=== PATIENT | female | born 1945 | race Caucasian/White ===

== ENCOUNTER → 2016-05-10 | Outpatient (CLI) | payer MEDICARE, OTHER ==
[~2016-05-10] MED LIST: ASPI-730 PO; BENZ100C97 PO; DOCU-129 PO; ESTR0.5T PO; MINO100C2 PO; MULT-795 PO
--- NOTE | 2016-05-10 10:39 | DI ---
Indication: ITS.REASON: M54.2 NECK PAIN PROCEDURE: CERVICAL SPINE 4 OR 5 VIEWS: Encounter: Initial Comparison: None Findings: Alignment of the cervical spine is within normal limits. No acute fracture or subluxation. Cervicothoracic junction is intact. The disk spaces are normal. Mild degenerative facet change at C6-C7 and C7-T1. There is also left-sided degenerative facet disease at C4-C5. The oblique views show bony neural foraminal stenosis at C4-C5 and C5-C6 on the left. Odontoid view is suboptimal. Impression: Degenerative disk and facet disease of the cervical spine. .
== END ==
LOC: IMA 09:51
PROVIDERS: ATTEND Family Medicine
DX: M47.812 Spondylosis without myelopathy or radiculopathy, cervical region (principal); E28.39 Other primary ovarian failure; M47.813 Spondylosis without myelopathy or radiculopathy, cervicothoracic region; M85.89 Other specified disorders of bone density and structure, multiple sites; M50.321 Other cervical disc degeneration at C4-C5 level; M50.322 Other cervical disc degeneration at C5-C6 level; Z78.0 Asymptomatic menopausal state

== ENCOUNTER 2017-03-20 15:07 | Observation (INO) ==
[2017-03-20] MEDS ORDERED: DiltiaZEM 25 MG/5 ML INJECTION IVP ONE (15:21)
[2017-03-20] MEDS ORDERED: NS 1,000 ML IV ONE (15:21)
[2017-03-20] MEDS: SALINE FLUSH 10ml SYRINGE IVF PRN (15:27)
[2017-03-20] MEDS: NS 1,000 ML IV SCH ×3 (16:12→23:41)
--- NOTE | 2017-03-20 16:29 | Emergency Department Report ---
Cardiac General HPI - General Chief Complaint: Arrhythmia/Palpitations Stated Complaint: Heart palpitations, chest pain, sob Time Seen by Provider: 03/20/17 15:20 - History of Present Illness HPI narrative: 71-year-old female presents with shortness of breath and anxiety feeling. Patient has no previous past medical history and no past cardiac issues. See clinical research associate this last week and had an ejection fraction was 70%. She is normally very active and very healthy. Is a retired nurse. No tobacco use. She is not having any chest pain or chest tightness. No heaviness in the chest. - Related Data Home Medications Medication Instructions Recorded Confirmed Estrace (estradiol) 0.5 mg tablet 0.5 mg PO HS 30 Days tab 08/02/16 03/20/17 Docusate Sodium [Stool Softener] 200 mg PO HS 03/15/17 03/20/17 Nitroglycerin 0.4 mg SL Q5M PRN 03/15/17 03/20/17 Vit A/Vit C/Vit E/Zinc/Copper 1 each PO BID 03/15/17 03/20/17 [Preservision Areds Tablet] Previous Rx's Medication Instructions Recorded Apixaban [Eliquis] 5 mg PO BID #60 tab 03/21/17 Flecainide [Tambocor] 50 mg PO BID #60 tab 03/21/17 cephALEXin [Cephalexin] 1 cap PO TID #15 cap 03/21/17 Allergies Allergy/AdvReac Type Severity Reaction Status Date / Time Sulfa (Sulfonamide Allergy Mild ITCH Verified 03/20/17 16:31 Antibiotics) minocycline Allergy Nausea Verified 03/20/17 16:31 propoxyphene AdvReac Mild NAUSEA/VOMI Verified 03/20/17 16:31 TING Review of Systems All systems: reviewed and negative except as stated PFSH Patient Stated Medical History Macular Degeneration Yes: receives injections with help Other Cardiology Yes: during stress test had pac's, pvc's Pneumonia Yes Other Musculoskeletal Yes: partial tear right rotator cuff, spinal stenosis l4-5, s1 Clinic Medical History (Last Reviewed 08/24/16 @ 21:32 by Christie Crouch MD) Osteopenia (Acute Medical) Colon polyp (Acute Medical) Macular degeneration (Acute Medical) Cataract (Acute Medical) Surgical History: T & A - age 4. Bilateral Tubal Ligation - 1975. Breast Biopsies - 1984, 1990, 1994, 1995. Bilateral Breast Reduction - 1989. Lap Cholecystectomy - 1996. Vaginal Hysterectomy - 11/1998. Cystoscopy - 1998. Total Colonoscopy w/ polypectomy - 05/18/2002. Total Colonoscopy - 07/14/2004. Total Colonoscopy w/ biopsies - 03/19/2008 Family History: Family History (Last Reviewed 08/24/16 @ 21:32 by Christie Crouch MD) Other Adopted - Social History Smoking status: Current some day smoker Physical Exam - Limitations Limitations: no limitations - General General appearance: alert - Normal Exams: Head:: Normocephalic without trauma Chest/Respirations:: Clear all sanchez, with good airflow, and symmetry bilaterally Cardiovascular:: without murmur or gallop, Pulses 2+ all extremities, capillary refill, <2 seconds all extremities Abdomen:: Bowel sounds positive, soft, non-tender, non-distended, no hepatosplenomegaly, masses or bruits noted Neurological:: Patient is alert, and oriented, cranial nerves, motor/sensory/ cerebellar, exams w/o gross deficits, to observation Psychiatric:: Patient exhibits, appropriate attention, emotion and affect - Cardiovascular Cardiovascular exam: Present: tachycardia, irregular rhythm Course Vital Signs Temperature 98.3 F 03/20/17 15:18 Pulse Rate 158 H 03/20/17 15:18 Temperature 98.6 F 03/21/17 16:00 Pulse Rate 101 H 03/21/17 16:00 Respiratory Rate 20 03/21/17 16:00 Blood Pressure 105/58 03/21/17 16:00 Pulse Oximetry 96 03/21/17 16:00 Cardiac General - [facility] Narrative Medical decision making narrative: IV peripheral, [id number]. EKG,cbc,cmp,trop,ua ordered. EKG shows Afib, which appears to be newonset. Trop neg. wbc slightly elevated. Cardizem 20mg IV. initially little result, but approx 15 min after dose, pt converted to Sinus Rhythm but blood pressure also decreased to less than 90 systolic. She had no symptoms with the hypotension and Trendelenburg ordered with 1 liter ns bolus. BP improved to 120 systolic and pt had no symptoms. Cardiology to admit for obs. - Differential Diagnosis Differential diagnosis: Likely: palpitations, anxiety, sinus tachycardia, artial fibrillation, artial flutter, ventricular premature beats, supraventricular tachycardia - Medical Records Attestation: I reviewed the patient's medical records. - Lab Data Attestation: I reviewed the patient's lab results. Result diagrams: 03/21/17 04:16 03/21/17 04:16 Lab Results 03/20/17 03/20/17 Range/Units 15:21 15:21 WBC 16.0 H (4.5-11.0) T/MM3 RBC 3.91 L (4.00-5.20) M/MM3 Hgb 12.4 (12-16) GM/DL Hct 37.3 (36-46) % MCV 95.4 (80-100) UM3 MCH 31.7 (26-34) UUG MCHC 33.2 (31-37) GM/DL RDW Std Deviation 42.2 (36.9-50.2) FL Plt Count 171 (130-400) T/MM3 MPV 9.2 L (9.4-12.4) UM3 Immature Gran % (Auto) Not performed Neut % (Auto) Not performed Lymph % (Auto) Not performed [place] % (Auto) Not performed Eos % (Auto) Not performed Baso % (Auto) Not performed Neut # (Auto) Not performed Lymph # (Auto) Not performed [place] # (Auto) Not performed Eos # (Auto) Not performed Baso # (Auto) Not performed Abs Immat Gran (auto) Not performed Neutrophils % (Manual) 73.0 H (33-66) % Band Neutrophils % 22.0 H (0-6) % Lymphocytes % (Manual) 2.0 L (23-45) % Monocytes % (Manual) 3.0 (0-9.0) % Neutrophils # (Manual) 11.7 H (1.8-7.7) T/MM3 Band Neutrophils # 3.5 T/MM3 Lymphocytes # (Manual) 0.3 L (1-4.8) T/MM3 Monocytes # (Manual) 0.5 (0-0.8) T/MM3 RBC Morph Comment Normal Turbidity < 20 (0-20) Sodium 135 (134-144) MEQ/L Potassium 3.1 L (3.6-5) MEQ/L Chloride 98 (98-107) MEQ/L Carbon Dioxide 26 (22-30) MEQ/L Anion Gap 11 (5-15) MEQ/L BUN 12.0 (7-17) MG/DL Creatinine 0.8 (0.7-1.2) MG/DL GFR Calculation 71 BUN/Creatinine Ratio 15 (6-26) RATIO Glucose 147 H (65-110) MG/DL Calculated Osmolality 263 (261-280) MOSM/KG Calcium 8.6 (8.4-10.2) MG/DL Total Bilirubin 0.30 (0.20-1.30) MG/DL Icterus Index < 2 (0-7) AST 38 H (14-36) U/L ALT 52 (9-52) U/L Alkaline Phosphatase 73 (38-126) U/L Troponin I < 0.012 (0-0.12) ng/ml Total Protein 6.6 (6.3-8.2) G/DL Albumin 3.5 (3.5-5.0) G/DL Globulin 3.1 (2.4-3.6) G/DL Albumin/Globulin Ratio 1.1 (1.1-2.2) RATIO TSH 2.06 (0.47-4.68) MIU/L Specimen Hemolysis < 15 (0-25) - Radiology Data Attestation: I reviewed the patient's radiology results. Disposition Clinical Impression: atrial fibrillation new onset Disposition: 02 To [facility] [place] Acute Care Condition: Improved Time of Disposition: 14:48 - Seen By: physician
--- NOTE | 2017-03-20 16:31 | XRay Report ---
INDICATION: afib PROCEDURE: CHEST 2-VIEWS UPRIGHT (PA & LAT) Encounter: Initial COMPARISON: None FINDINGS: The lungs are clear without evidence of focal abnormal airspace opacity. There is no pleural effusion or pneumothorax. The heart size, mediastinal contours and pulmonary vascularity are within normal limits. IMPRESSION: No acute cardiopulmonary disease. .
--- NOTE | 2017-03-20 17:39 | Cardiology History & Physical ---
History of Present Illness Chief complaint: palpitations, SOA HPI: Mary Ann is a 71 year old female who is known to Dr. Figueroa with a history of precordial pain, palpitations, HLD and Right bruit who presented to the ED today with shortness of breath and anxiety feeling. She was seen in the clinic yesterday and received results of her recent stress test, echo and ELISHA monitor. She reported chest pain and was started on Imdur 30mg daily but pain was felt to be not likely cardiac etiology. Stress test showed EF 73% and no significant ischemia, recent echo was stable with EF 55%, NWMA, trace TR/MR, PAP 20mmHg, trace PI. ELISHA showed SR, occasional PACs and PVCs, short atrial runs (7 beats) No A Fib, no VT, no pauses, no symptoms on diary. She is normally very active and very healthy. Is a retired nurse. She is examined in the ED and reports some SOA with ambulation to the bathroom. She denies any chest pain or chest tightness. She has had a recent viral illness which has made her feel weak and fatigued Review of Systems - Constitutional Constitutional: Present: as per HPI, fatigue, weakness - EENMT Eyes: Absent: change in vision Balance: Absent: vertigo Mouth/Throat: Absent: sore throat - Cardiovascular Cardiovascular: Present: palpitations, dyspnea on exertion. Absent: chest pain , syncope, orthopnea Vascular: Absent: pedal edema - Respiratory Respiratory: Present: cough, dyspnea on exertion - Gastrointestinal Gastrointestinal: Absent: abdominal pain, diarrhea, nausea, vomiting - Genitourinary Genitourinary: Absent: dysuria - Integumentary/Breasts Integumentary: Absent: rash - Neurological Neurological: Absent: dizziness - Endocrine Endocrine: Present: palpitations [facility] Clinic Medical History (Last Reviewed 08/24/16 @ 21:32 by Christie Crouch MD) Osteopenia (Acute Medical) Colon polyp (Acute Medical) Macular degeneration (Acute Medical) Cataract (Acute Medical) Surgical History: T & A - age 4. Bilateral Tubal Ligation - 1975. Breast Biopsies - 1984, 1990, 1994, 1995. Bilateral Breast Reduction - 1989. Lap Cholecystectomy - 1996. Vaginal Hysterectomy - 11/1998. Cystoscopy - 1998. Total Colonoscopy w/ polypectomy - 05/18/2002. Total Colonoscopy - 07/14/2004. Total Colonoscopy w/ biopsies - 03/19/2008 Family History: Family History (Last Reviewed 08/24/16 @ 21:32 by Christie Crouch MD) Other Adopted - Social History Smoking status: Former smoker Alcohol intake frequency: holidays/special occasions only Household members: spouse Current occupational status: retired Current residence: Apartment/Private Home Medications Home Medications Medication Instructions Recorded Confirmed Type Estrace (estradiol) 0.5 mg tablet 0.5 mg PO HS 30 Days tab 08/02/16 03/20/17 History Docusate Sodium [Stool Softener] 200 mg PO HS 03/15/17 03/20/17 History Nitroglycerin 0.4 mg SL Q5M PRN 03/15/17 03/20/17 History Vit A/Vit C/Vit E/Zinc/Copper 1 each PO BID 03/15/17 03/20/17 History [Preservision Areds Tablet] Allergies Allergy/AdvReac Type Severity Reaction Status Date / Time Sulfa (Sulfonamide Allergy Mild ITCH Verified 03/20/17 16:31 Antibiotics) minocycline Allergy Nausea Verified 03/20/17 16:31 propoxyphene AdvReac Mild NAUSEA/VOMI Verified 03/20/17 16:31 TING Exam Vital signs: Temperature 98.3 F 03/20/17 15:18 Pulse Rate 99 03/20/17 17:01 Respiratory Rate 41 H 03/20/17 17:01 Blood Pressure 96/53 03/20/17 17:01 Pulse Oximetry 96 03/20/17 17:01 - Constitutional no acute distress, well nourished, cooperative - Routine HEENT Exam Head: Present: normocephalic ENT: Present: mucous membranes moist - Routine Neck Exam Present: carotid bruit (right). Absent: JVD - Routine Chest/Breast/Axilla Exam Chest wall: Absent: tenderness - Routine Respiratory Exam Present: rales (bibasilar). Absent: CTA bilaterally - Routine Cardiovascular Exam Present: RRR, no murmur, tachycardia - Routine Abdominal Exam Present: soft, normoactive bowel sounds - Routine Extremities Exam Present: no edema - Routine Skin Exam Present: intact, dry, warm - Routine Neurological Exam Present: alert, oriented X3 - Routine Psychiatric Exam Present: normal affect, normal thought process Results 03/21/17 04:16 03/21/17 04:16 - Imaging and Cardiology Imaging & Cardiology Narrative: Date of Exam: 03/20/17 Ordering Provider: Joseph Henderson MD Type of Exam(s): XR chest 2V Reason for Exam(s): afib INDICATION: afib PROCEDURE: CHEST 2-VIEWS UPRIGHT (PA & LAT) Encounter: Initial COMPARISON: None FINDINGS: The lungs are clear without evidence of focal abnormal airspace opacity. There is no pleural effusion or pneumothorax. The heart size, mediastinal contours and pulmonary vascularity are within normal limits. IMPRESSION: No acute cardiopulmonary disease. 03/20/17 17:40 EKG interpretations - EKG EKG shows: atrial fibrillation (with RVR) Hospital Course This is a general summary of the patient's hospital course. For more details refer to the complete medical record. Time spent with patient: 25 - 35 minutes Resuscitation Status: Full Code Assessment and Plan - Attestation Attestation Narrative: 03/22/17 13:20 Recommendation After examining the patient I agree with the above assessment. I am involved in the formulation of the patient's plan of care. - Assessment and Plan (1) Atrial fibrillation with RVR Status: Acute New onset - Converted in ED with Cardizem IV - Admit to medical for antiarrhythmic therapy - Start Flecainide 100mg now then 50mg BID - Check Mag level now and in am - Ekg to confirm SR now and in Am to check QT interval - Eliquis 5mg BID for anticoagulation to prevent stroke - Resume home medications including new RX for Imdur 30mg for chest pain. (2) Mixed hyperlipidemia Status: Chronic (3) Right carotid bruit Status: Chronic - Assessment and Plan New onset - Converted in ED with Cardizem IV - Admit to medical for antiarrhythmic therapy - Start Flecainide 100mg now then 50mg BID - Check Mag level now and in am - Ekg to confirm SR now and in Am to check QT interval - Eliquis 5mg BID for anticoagulation to prevent stroke - Resume home medications including new RX for Imdur 30mg for chest pain.
[2017-03-20 17:59] VITALS: BMI 22.4
[2017-03-20] MEDS ORDERED: NITROGLYCERIN 0.4 MG SUBLINGUAL TABLET SL PRN (18:13)
[2017-03-20] MEDS ORDERED: FLECAINIDE 100 MG TABLET PO ONE (19:00)
[2017-03-20] MEDS: APIXABAN 5 MG TABLET PO SCH (20:38)
[2017-03-20] MEDS: MULTI-VITAMIN + MINERAL TABLET PO SCH (20:39)
[2017-03-20] MEDS ORDERED: ONDANSETRON 4 MG/2 ML INJECTION IVP PRN (20:49)
[2017-03-20] MEDS ORDERED: ONDANSETRON ODT 4 MG TABLET PO PRN (20:50)
[2017-03-20] MEDS ORDERED: ONDANSETRON 4 MG/2 ML INJECTION IVP ONE (21:00)
[2017-03-20] MEDS ORDERED: ESTRADIOL 0.5 MG TABLET PO SCH (21:00)
[2017-03-20] MEDS ORDERED: ASPIRIN 325 MG TABLET PO SCH (21:00)
[2017-03-20] MEDS ORDERED: DOCUSATE SODIUM 100 MG CAPSULE PO SCH (21:00)
[2017-03-20] MEDS: IBUPROFEN 400 MG TABLET PO PRN (21:20)
[2017-03-21] MEDS: ACETAMINOPHEN 325 MG TABLET PO PRN ×3 (03:00→18:26)
[2017-03-21] MEDS: SALINE FLUSH 10ml SYRINGE IVF PRN (03:11)
[2017-03-21] MEDS: NS 1,000 ML IV SCH ×2 (03:53→04:38)
[2017-03-21] MEDS ORDERED: FUROSEMIDE 20 MG/2 ML INJECTION IVP ONE (05:05)
[2017-03-21] MEDS ORDERED: ISOSORBIDE MONONITRATE ER 30 MG TABLET PO SCH (06:30)
[2017-03-21] MEDS: IBUPROFEN 400 MG TABLET PO PRN ×2 (08:29→16:04)
[2017-03-21] MEDS ORDERED: FLECAINIDE 50 MG TABLET PO SCH (09:00)
[2017-03-21] MEDS: MULTI-VITAMIN + MINERAL TABLET PO SCH (09:16)
[2017-03-21] MEDS: APIXABAN 5 MG TABLET PO SCH (09:16)
--- NOTE | 2017-03-21 11:56 | Consult Note ---
Consult Information - Data of Consult Consult date: 03/21/17 Requesting Physician: Hang Figueroa MD Primary Care Provider: Kelli Lang MD Family Provider: Kelli Lang MD - Consult Narrative Reason for consult: shortness of breath History of present illness: Mary Ann is seen today in consultation for URI and shortness of breath. Mary Ann originally started feeling bad last 03/14 with fevers, chills, nausea, vomiting, and significant body aches. Maximiliano was seen in the emergency room overnight on 03/15/17 and had a fever up to 103. Basic labs were obtained. At that time it was felt that patient probably had influenza and was recommended to continue on Zofran as needed and Advil. Patient was discharged home, however her symptoms were persistent over the next several days until yesterday at which time she was having such severe shaking and chills. She presented back to the emergency room yesterday afternoon. At that time she did complain of feeling short of breath and anxious. She was found to be in atrial fibrillation with rapid ventricular rate at 153. She had been having some irregular heartbeats and had been evaluated in the outpatient setting by Dr. Figueroa several weeks prior. She was to start taking isosorbide 30 milligrams and had just filled it on 03/19/17, however, because of her acute significant illness, she had not yet started. Given the acute finding of atrial fibulation with rapid ventricular rate. Dr. Figueroa was contacted and he admitted patient for further evaluation and treatment. She did convert to sinus rhythm, however overnight patient continued to have some shortness of breath and Hospitalists services were contacted for medical evaluation. Mary Ann is seen this morning for initial consultation, she is alert, oriented and pleasant. She is breathing on room air without evidence of distress. Her biggest complaint is feeling short of breath, and having productive cough. She denies having chest pain, palpitations or dizziness. She feels overall fatigued and worn out, which has been present for the past 7 days. Past Medical History Patient Stated Medical History Atrial fibrillation Osteopenia Hyperlipidemia Cataracts Macular degeneration Constipation Surgical History: T & A - age 4. Bilateral Tubal Ligation - 1975. Breast Biopsies - 1984, 1990, 1994, 1995. Bilateral Breast Reduction - 1989. Lap Cholecystectomy - 1996. Vaginal Hysterectomy - 11/1998. Cystoscopy - 1998. Total Colonoscopy w/ polypectomy - 05/18/2002. Total Colonoscopy - 07/14/2004. Total Colonoscopy w/ biopsies - 03/19/2008 Family History Updates: Adopted - Social History Smoking status: Former smoker Substance use type: does not use Alcohol intake: current Alcohol intake frequency: holidays/special occasions only Housing: house Current occupational status: retired (registered nurse) Current residence: Residential Social history: Primary care provider-Dr. Lang Customer Care Agent-Dr. Figueroa Review of Systems All systems PM: 10-point ROS was reviewed, no additional remarkable complaints except - Constitutional Constitutional: Present: chills, fatigue, fever(s), malaise - Respiratory Respiratory: Present: cough Medications Home Medications Medication Instructions Recorded Confirmed Type Estrace (estradiol) 0.5 mg tablet 0.5 mg PO HS 30 Days tab 08/02/16 03/20/17 History Docusate Sodium [Stool Softener] 200 mg PO HS 03/15/17 03/20/17 History Nitroglycerin 0.4 mg SL Q5M PRN 03/15/17 03/20/17 History Vit A/Vit C/Vit E/Zinc/Copper 1 each PO BID 03/15/17 03/20/17 History [Preservision Areds Tablet] Allergies Allergy/AdvReac Type Severity Reaction Status Date / Time Sulfa (Sulfonamide Allergy Mild ITCH Verified 03/20/17 16:31 Antibiotics) minocycline Allergy Nausea Verified 03/20/17 16:31 propoxyphene AdvReac Mild NAUSEA/VOMI Verified 03/20/17 16:31 TING Exam Vital Signs: Temperature 99.9 F 03/21/17 08:00 Pulse Rate 98 03/21/17 08:14 Respiratory Rate 18 03/21/17 08:00 Blood Pressure 110/45 03/21/17 08:00 Pulse Oximetry 91 03/21/17 08:14 Telemetry Rhythm: Sinus Rhythm Height/Weight/BMI: Height 1.65 m Weight 62.1 kg Body Mass Index 22.4 - Constitutional Present: no acute distress, well nourished, well developed - Routine HEENT Exam Eye: Present: EOMI ENT: Present: mucous membranes moist, dentition normal - Routine Respiratory Exam Present: CTA bilaterally. Absent: wheezes - Routine Cardiovascular Exam Present: RRR. Absent: murmur - Routine Abdominal Exam Present: soft, normoactive bowel sounds, non distended. Absent: tenderness - Routine Extremities Exam Present: no edema, full ROM - Routine Back/Spine/Pelvis Exam Back/Spine: Present: full ROM - Routine Skin Exam Present: intact, dry, warm - Routine Neurological Exam Present: alert, oriented X3, CN II-XII intact, moving all extremities - Routine Psychiatric Exam Present: normal affect, cooperative Results - Labs CBC & Chem 7: 03/21/17 04:16 03/21/17 04:16 Assessment and Plan Assessment and Plan: Impression Viral illness-likely influenza Hypokalemia Leukocytosis with left shift A-fib with RVR-resolved Cataracts Macular degeneration Hyperlipidemia Anemia, normocytic Plan Cardiology care as per Dr Figueroa Suspect patient did have influenza based on history and clinical presentation. She is out of the window for treatment with Tamiflu and she agrees it will likely not affect illness process Given that she is having a productive cough, will obtain sputum culture Mucinex BID to help with sputum production Given one time dose of PO potassium given mild hypokalemia Otherwise treat symptoms. She is not hypoxic and is without any chest pain. Will recommend follow up with Dr Lang in 1 week post discharge. Resuscitation Status: Full Code - Physician Narrative Physician: Marie Darby MD Narrative: Date: 03/21/17 Time: 1744 I have independently evaluated and examined this patient. I reviewed the chart, the patient's history, and the CASINO WORKER/PA's documented findings as above. We discussed and formulated the assessment and plan as above with additions as below: Mrs. Esteves was hospitalized after developing chest pain with accompanying dyspnea and tightness in her chest. She was found to be in atrial fibrillation with rapid ventricular response as described above. She converted to sinus tachycardia followed by transient drop in blood pressure into the 70s requiring fluid administration. This afternoon she feels well indicating complete resolution of chest discomfort, dyspnea, and lightheadedness. She has minimal residual cough from what is believed to be an influenza last week and myalgias are improving. However her white count on admission yesterday was 16,000 with 22 % bands; this morning white count was 14.6 without a differential obtained although I subsequently requested it and she has 13% bands. Urinalysis was subsequently obtained demonstrating 20-30 WBCs, 10-20 epithelial cells, +2 bacteria, +2 leukocyte esterase, positive nitrites, +3 occult blood. The patient has no urinary symptoms. Temperature yesterday evening reached 101.6 and subsequently has normalized. Patient denies feeling ill at this time other than mild generalized headache. NAD, alert Oropharynx is clear, sinuses are nontender although there is mild mastoid tenderness bilaterally Respirations are nonlabored, good airflow, breath sounds are clear Abdomen soft, nontender, bowel sounds present; no costovertebral angle tenderness MAEW EKG is reviewed by myself-initially atrial fibrillation with rapid ventricular response, subsequently sinus tachycardia without acute ST/T-wave changes Chest x-ray reviewed by myself-NAD Hypotension reported yesterday following diltiazem has fully resolved and the patient is ambulating without difficulty. Cause of leukocytosis with left shift is less clear; may represent stress reaction although number of bands is atypical. Both the white count and bands are resolving spontaneously. There is no clinical indication of UTI or pyelonephritis but will treat with cephalexin for 5 days for UTI. Additionally patient's hemoglobin has dropped following hydration from 12.4-10.0; hemoglobin was 13.4 on March 15 when she was seen in the emergency room and I've recommended that she have laboratories reassessed next week at Dr. Lang's office to determine stability. Of note patient denied any evidence of blood loss or rectal bleeding including melena. MCV has been stable over the past week and bilirubin was normal on admission so there is no strong indication of hemolysis by limited lab work. Medically stable for discharge this time with recommendation that she follow up with Dr. Lang within 1 week for reevaluation. Hospital Course Summary Disclaimer: The visit summary below is not to be considered part of the above Progress Note. Hospital Course: Impression Viral illness-likely influenza Hypokalemia Leukocytosis- POA A-fibulation with RVR-resolved Cataracts Macular degeneration Hyperlipidemia 03/21- Consult Cardiology care as per Dr Figueroa Suspect patient did have influenza based on history and clinical presentation. She is out of the window for treatment with Tamiflu and she agrees it will likely not affect illness process Given that she is having a productive cough, will obtain sputum culture Mucinex BID to help with sputum production Given one time dose of PO potassium given mild hypokalemia Otherwise treat symptoms. She is not hypoxic and is without any chest pain. Will recommend follow up with Dr Lang in 1 week post discharge.
[2017-03-21] MEDS ORDERED: GUAIFENESIN LA 600 MG TABLET PO SCH (11:58)
--- NOTE | 2017-03-21 14:08 | Discharge Summary ---
<Niki Castillo - Last Filed: 03/21/17 14:52> Discharge Information Date of admission: 03/20/17 17:04 Anticipated date of discharge: 03/21/17 Attending Physician: Hang Figueroa MD Primary care physician: Kelli Lang MD Consults: 03/21/17 11:11 Physician Consult [CONS] Routine Consulting Provider: Marie Darby Reason For Exam: SOA Ordering Provider has Notified Production Engineer: Yes - Discharge Diagnosis (1) Atrial fibrillation with RVR Status: Acute (2) Mixed hyperlipidemia Status: Chronic (3) Right carotid bruit Status: Chronic New onset Atrial fibrillation - Laboratory Labs: 03/21/17 04:16 03/21/17 04:16 History of Present Illness HPI: Mary Ann is a 71 year old female who is known to Dr. Figueroa with a history of precordial pain, palpitations, HLD and Right bruit who presented to the ED today with shortness of breath and anxiety feeling. She was seen in the clinic yesterday and received results of her recent stress test, echo and ELISHA monitor. She reported chest pain and was started on Imdur 30mg daily but pain was felt to be not likely cardiac etiology. Stress test showed EF 73% and no significant ischemia, recent echo was stable with EF 55%, NWMA, trace TR/MR, PAP 20mmHg, trace PI. ELISHA showed SR, occasional PACs and PVCs, short atrial runs (7 beats) No A Fib, no VT, no pauses, no symptoms on diary. She is normally very active and very healthy. Is a retired nurse. She is examined in the ED and reports some SOA with ambulation to the bathroom. She denies any chest pain or chest tightness. She has had a recent viral illness which has made her feel weak and fatigued Hospital Course This is a general summary of the patient's hospital course. For more details refer to the complete medical record. Hospital course: 03/20/17 New onset - Converted in ED with Cardizem IV - Admit to medical for antiarrhythmic therapy - Start Flecainide 100mg now then 50mg BID - Check Mag level now and in am - Ekg to confirm SR now and in Am to check QT interval - Eliquis 5mg BID for anticoagulation to prevent stroke - Resume home medications including new RX for Imdur 30mg for chest pain. Impression Viral illness-likely influenza Hypokalemia Leukocytosis- POA A-fibulation with RVR-resolved Cataracts Macular degeneration Hyperlipidemia 03/21- Consult Cardiology care as per Dr Figueroa Suspect patient did have influenza based on history and clinical presentation. She is out of the window for treatment with Tamiflu and she agrees it will likely not affect illness process Given that she is having a productive cough, will obtain sputum culture Mucinex BID to help with sputum production Given one time dose of PO potassium given mild hypokalemia Otherwise treat symptoms. She is not hypoxic and is without any chest pain. Will recommend follow up with Dr Lang in 1 week post discharge. Time spent with patient: 25 - 35 minutes Resuscitation Status: Full Code Exam Vital signs: Temperature 99.9 F 03/21/17 08:00 Pulse Rate 98 03/21/17 08:14 Respiratory Rate 18 03/21/17 08:00 Blood Pressure 110/45 03/21/17 08:00 Pulse Oximetry 91 03/21/17 08:14 - Constitutional no acute distress, well nourished, cooperative - Routine HEENT Exam Head: Present: normocephalic ENT: Present: mucous membranes moist - Routine Neck Exam Present: carotid bruit (right). Absent: JVD - Routine Chest/Breast/Axilla Exam Chest wall: Absent: tenderness - Routine Respiratory Exam Present: CTA bilaterally. Absent: rales, wheezes - Routine Cardiovascular Exam Present: RRR - Routine Abdominal Exam Present: soft, normoactive bowel sounds - Routine Extremities Exam Present: no edema - Routine Skin Exam Present: intact, dry, warm - Routine Neurological Exam Present: alert, oriented X3 - Routine Psychiatric Exam Present: normal affect, normal thought process Results 03/21/17 04:16 03/21/17 04:16 Cardiac Enzymes 03/21/17 Range/Units 04:32 Troponin I < 0.012 (0-0.12) ng/ml CBC 03/21/17 Range/Units 04:16 WBC 14.6 H (4.5-11.0) T/MM3 RBC 3.13 L (4.00-5.20) M/MM3 Hgb 10.0 L D (12-16) GM/DL Hct 30.4 L D (36-46) % Plt Count 169 (130-400) T/MM3 Comprehensive Metabolic Panel 03/21/17 Range/Units 04:16 Sodium 138 (134-144) MEQ/L Potassium 3.5 L (3.6-5) MEQ/L Chloride 109 H D (98-107) MEQ/L Carbon Dioxide 25 (22-30) MEQ/L BUN 10.0 (7-17) MG/DL Creatinine 0.7 (0.7-1.2) MG/DL Glucose 112 H (65-110) MG/DL Calcium 7.6 L D (8.4-10.2) MG/DL Intake and Output 03/20/17 03/21/17 03/21/17 22:59 06:59 14:59 Intake Total 1150 / 2150 2162.5 / 2162.5 450 / 450 Output Total 300 / 300 200 / 200 300 / 300 Balance 850 / 1850 1962.5 / 1962.5 150 / 150 Intake: IV 750 / 750 2162.5 / 2162.5 Ns 1,000 ml @ 250 mls/hr IV . 750 / 750 2162.5 / 2162.5 Q4H [facility] [place] Rx#:[id number] Oral 400 / 400 450 / 450 Output: Urine 300 / 300 200 / 200 Urine Amount (Catheter) 300 / 300 Other: Urine Appearance Clear Clear Clear Urine Color Yellow Yellow Yellow Urine Odor Normal Strong Stool Color Brown Stool Consistency Soft Formed Size of Bowel Movement Moderate # Voids 1 1 # Bowel Movements 1 Weight 134 lb 7.712 oz 136 lb 14.513 oz Patient Weight 03/22/17 06:59 Weight 136 lb 14.513 oz - Imaging and Cardiology Imaging & Cardiology Narrative: Date of Exam: 03/20/17 Ordering Provider: Joseph Henderson MD Type of Exam(s): XR chest 2V Reason for Exam(s): afib INDICATION: afib PROCEDURE: CHEST 2-VIEWS UPRIGHT (PA & LAT) Encounter: Initial COMPARISON: None FINDINGS: The lungs are clear without evidence of focal abnormal airspace opacity. There is no pleural effusion or pneumothorax. The heart size, mediastinal contours and pulmonary vascularity are within normal limits. IMPRESSION: No acute cardiopulmonary disease. 03/21/17 14:07 Discharge Plan - Med Rec/Dispo Referrals/Follow Up: Hang Figueroa MD [Physician] - 04/02/17 11:30 am [facility] Instructions: Flecainide (By mouth) (Tambocor), Apixaban (By mouth) ( Eliquis), A-fib (Atrial Fibrillation) (ED) Prescriptions: New Flecainide [Tambocor] 50 mg PO BID #60 tab cephALEXin [Cephalexin] 1 cap PO TID #15 cap Apixaban [Eliquis] 5 mg PO BID #60 tab Discontinued Aspirin [ASA] 325 mg PO HS No Action Vit A/Vit C/Vit E/Zinc/Copper [Preservision Areds Tablet] 1 each PO BID Nitroglycerin 0.4 mg SL Q5M PRN PRN Reason: Chest Pain Docusate Sodium [Stool Softener] 200 mg PO HS Estrace (estradiol) 0.5 mg tablet 0.5 mg PO HS 30 Days tab - Disposition 01 Discharged Home, Self-Care - Dismissal Complete Discharge Instructions are:: Complete <Hang Figueroa - Last Filed: 03/22/17 13:32> Discharge Information Date of admission: 03/20/17 17:04 Attending Physician: Hang Figueroa MD Primary care physician: Kelli Lang MD Consults: 03/21/17 11:11 Physician Consult [CONS] Routine Consulting Provider: Marie Darby Reason For Exam: SOA Ordering Provider has Notified Production Engineer: Yes - Discharge Diagnosis (1) Atrial fibrillation with RVR Status: Acute (2) Mixed hyperlipidemia Status: Chronic (3) Right carotid bruit Status: Chronic - Laboratory Labs: 03/21/17 04:16 03/21/17 04:16 - Microbiology Microbiology 03/21/17 16:31 Urine, Voided (Cc/notcc) Urine Culture - Preliminary Escherichia coli 03/21/17 16:06 Sputum, Expectorated Gram Stain - Final 03/21/17 16:06 Sputum, Expectorated Sputum Culture - Final Hospital Course This is a general summary of the patient's hospital course. For more details refer to the complete medical record. Exam Vital signs: Temperature 98.6 F 03/21/17 16:00 Pulse Rate 101 H 03/21/17 16:00 Respiratory Rate 20 03/21/17 16:00 Blood Pressure 105/58 03/21/17 16:00 Pulse Oximetry 96 03/21/17 16:00 Results 03/21/17 04:16 03/21/17 04:16 Intake and Output 03/21/17 03/22/17 03/22/17 22:59 06:59 14:59 Output Total 75 / 75 Balance -75 / -75 Output: Urine Amount (Catheter) 75 / 75 Other: Urine Appearance Clear Urine Color Yellow Attestation Narriative - Attestation Attestation Narrative: 03/22/17 13:32 Recommendation After examining the patient I agree with the above assessment. I am involved in the formulation of the patient's plan of care.
[2017-03-21 16:03] VITALS: BP 105/58; PULSE 101; RESP 20; TEMP 98.6; O2SAT 96
== END 2017-03-21 19:00 | disposition home or self-care (01) ==
LOC: MED 15:07 → ED 15:07 → MED 17:35
PROVIDERS: ADMIT Internal Medicine Cardiovascular Disease; ATTEND Internal Medicine Cardiovascular Disease